=== PATIENT | female | born 1975 | race Asian ===

== ENCOUNTER → 2019-01-16 | Outpatient (CLI) | payer OTHER ==
[~2019-01-16] MED LIST: ACET500T68 PO; CYCL10TA2 PO; IBUP-1060 PO; IOHEXOL 180 MG/ML 10 ML VIAL. ONE; LEVO50TA5 PO; NAPR-514 PO; methylPREDNISolone ACETATE 40 MG/ML VIAL. ONE; methylPREDNISolone ACETATE 80 MG/ML VIAL. ONE
--- NOTE | 2019-01-17 02:43 | PAIN ---
DATE OF SERVICE: 01/16/2019 INITIAL CONSULTATION FOR PAIN CLINIC CHIEF COMPLAINT: Low back and left lower extremity pain. HISTORY OF PRESENT ILLNESS: This is a 43-year-old female who presents with history of pain since a work injury on 10/24/2018. The patient is a nurse sharepoint net developer. She was helping to keep the patient from falling off the bed surface on to the floor and reached over the OR bed and pulled her low back and left leg, had significant pain, getting worse over the next several days following the injury. The patient reports the pain now is across the low back into the left lower extremity, posterior gluteus, posterior thigh, posterior calf with aching and tingling, numbness on the left side, becoming more constant in the back, is intermittent in the legs, but radiating to the left leg as described. No symptoms across the low back on the right side. The patient reports it does not awaken her from sleep at night, is better with sitting or lying down. It does not affect her bowel or bladder control, does affect her ability to walk and stand with significant pain involved with each, even walking more than about 10-15 minutes. The patient has tried Flexeril, ibuprofen, Tylenol and naproxen, none of which are very effective, some help for just a few hours. The patient reports she has had physical therapy, she is doing that currently and doing 3 times a week and is doing that later today actually, also exercising and stretching at home and walking when she can. She is a runner but she has not been able to run since this happened because of the pain. The patient rates her disability rating from 0-10, 10 being the worst, 2 with family and home responsibilities, 4 with recreation, 1 with social activity, 4 with occupation, 3 with sexual behavior, 0 with self-care and 1 with life support activities. The patient did have MRI scan of the lumbar spine showing at L5-S1 mild broad-based central disk protrusion, extrusion extending 0.3 cm posterior with migration of disk material inferiorly by 0.4 cm. This is associated with annular fissure causing slight anterior effacement of the thecal sac. PAST MEDICAL HISTORY: Significant for gastroesophageal reflux and diagnostic laparoscopy, otherwise the patient has been in very good health. CURRENT MEDICATIONS: Include levothyroxine, cyclobenzaprine, naproxen, acetaminophen and ibuprofen. ALLERGIES: The patient has no known drug allergies. FAMILY HISTORY: Significant for no major medical problems or conditions that she is aware of. SOCIAL HISTORY: The patient drinks alcohol occasionally, very rarely socially, does not smoke, does not use any illegal, illicit or recreational drugs. She is , lives with her spouse and her son lives locally in [place], [place]. REVIEW OF SYSTEMS: The patient's review of systems is positive for those items mentioned in history of present illness. All systems reviewed and otherwise negative. It is complete, full and well documented on the patient's chart. PHYSICAL EXAMINATION: VITAL SIGNS: The patient's blood pressure is 125/67, pulse 78, respirations 16, temperature 98.1 degrees Fahrenheit. Height is 5 feet 0 inches, weight is 137 pounds. GENERAL: The patient is awake, alert, oriented, appropriate, very pleasant demeanor. HEENT: Head shows normocephalic, atraumatic. Extraocular movements are intact and symmetrical. Oral cavity: Mucous membranes moist and pink. Dentition is intact. NECK: Shows anterior throat supple without palpable lymphadenopathy noted. Swallow reflex symmetrical. CHEST: Shows normal with inspection. Breath sounds clear to auscultation bilaterally. HEART: Shows S1, S2 clear. No murmurs auscultated. ABDOMEN: Soft, nontender, nondistended. No palpable organomegaly is noted. No rebound or guarding demonstrated. BACK: Shows spine grossly in the midline. Normal-appearing cervical lordotic curvature, thoracic kyphotic curvature and lumbar lordotic curvature. Lumbar paraspinous muscle shows symmetrical on inspection, with palpation shows some moderate tenderness diffusely in the low lumbar distribution, but only diffusely without radiation. The patient has good rotational motion of lumbar spine both laterally as well as extension and flexion without significant difficulty or pain reported. No tenderness over the spinous processes, sacrum or sacroiliac region with direct palpation as well. EXTREMITIES: The patient's lower extremities show deep tendon reflexes 2+ in the patellar, 1+ tendo-calcaneus tendons. Motor exam is strong with 5/5 dorsiflexion, extension, quadriceps and hamstring flexion symmetrical. The patient's lower extremities are warm and dry to touch, equal in color and appearance. Peripheral pulses are 1+ posterior tibia. No peripheral edema is noted. The patient's straight leg raise is noted to be positive on the left at about 45 degrees, decreased with knee flexion, right side is negative. Gaenslen's and Nayan's maneuvers are negative bilaterally as well. The patient is able to stand, stand on her toes without difficulty or loss of balance, walks with a normal-appearing gait, not using any assistive devices to ambulate. SKIN: Shows warm and dry, good turgor. No edema. No sores, rashes or bruising. IMPRESSION: This is a 43-year-old female with: 1. Approximate 3-month history of low back and left lower extremity pain after injury while at work on 10/24/2018. 2. MRI scan of lumbar spine as noted. 3. Gastroesophageal reflux. ASSESSMENT AND PLAN: Options were discussed with the patient including conservative medical management, physical therapy, interventional techniques and she would like to pursue interventional techniques as she is currently doing physical therapy and feels this is helping. We discussed a lumbar epidural steroid injection using description as well as anatomical models to describe the procedure. Risks were discussed including but not limited to bleeding, infection, possibility of epidural hematoma, subsequent neurologic compromise, dural puncture, headaches, spinal cord and/or nerve damage, side effects of steroid medication and poor results regarding pain control. The patient understands and wished to proceed. The patient will return to clinic in approximately 2 weeks for followup, was counseled on return appointment, activity level and side effects to be aware of. DIAGNOSES: Lumbar radiculopathy with lumbar degenerative disk disease with lumbar herniated disk. PROCEDURE: Lumbar epidural steroid injection, translaminar approach at L5-S1 level using C-arm fluoroscopic guidance under sterile prep and drape using local anesthetic. MEDICATION INJECTED: A total of 120 mg Depo-Medrol plus 10 mL of preservative-free normal saline and 2 mL of contrast. CONDITION AT DISCHARGE: Stable. The patient tolerated procedure well, had no complications. SANDRA ABRAHAM MD DR: SILVANA/lori JOB#: [id number] / [id number]
== END ==
LOC: PNCL 10:30
PROVIDERS: ATTEND Anesthesiology
DX: M51.16 Intervertebral disc disorders with radiculopathy, lumbar region (principal); K21.9 Gastro-esophageal reflux disease without esophagitis; Z72.89 Other problems related to lifestyle
CPT/HCPCS: 62323; J1030; J1040; Q9965

== ENCOUNTER → 2019-02-28 | Outpatient (CLI) | payer OTHER ==
[~2019-02-28] MED LIST changes: -IOHEXOL 180 MG/ML 10 ML VIAL. ONE; -methylPREDNISolone ACETATE 40 MG/ML VIAL. ONE; -methylPREDNISolone ACETATE 80 MG/ML VIAL. ONE
--- NOTE | 2019-03-01 02:34 | PAIN ---
DATE OF SERVICE: 02/28/2019 PROGRESS NOTE FOR PAIN CLINIC DIAGNOSES: Lumbar radiculopathy with lumbar degenerative disk disease with lumbar herniated disk. HISTORY OF PRESENT ILLNESS: The patient is a 43-year-old female who returns for followup status post lumbar epidural steroid injection x 2. The patient reports that she had increased pain in her left leg for about a week following the injection, but then it resolved and she had done about 75% better overall. The patient noted increase in her activity, distance walking, greater ability to work, activities, doing household activities as well as sleeping much better at night, does not awaken her from sleep. The patient reports no new motor or sensory deficit. She is quite pleased with her progress. Still some pain in the posterior hip and thigh on the left side in the low back radiating to posterior gluteus, posterior calf to some extent, but the tingling and numbness in her foot has now gone. The patient reports the pain is a 4 on a scale of 10 at its worst over the past week, 3 on average and 2 at its least and is at 2 today. The patient reports no new motor or sensory deficit. She continues to do physical therapy. She is doing exercises at home as well. PHYSICAL EXAMINATION: VITAL SIGNS: The patient's blood pressure is 99/66, pulse 74, respirations 18, temperature 99.0 degrees Fahrenheit, height is 5 feet and weight is 137 pounds. GENERAL: The patient is awake, alert, oriented, appropriate, very pleasant demeanor. HEENT: Shows normocephalic, atraumatic. Extraocular movements are intact and symmetrical. Oral cavity: Mucous membranes moist and pink. Dentition is intact. NECK: Shows anterior throat supple without palpable lymphadenopathy noted. Swallow reflex symmetrical. CHEST: Shows normal on inspection. Breath sounds clear to auscultation bilaterally. HEART: Shows S1, S2 clear. ABDOMEN: Soft, nontender. BACK: Shows spine grossly in the midline. Normal appearing thoracic kyphosis and lumbar lordotic curvature. Lumbar paraspinous muscle shows symmetrical on inspection, with palpation she has some moderate tenderness diffusely bilaterally going diffusely without radiation. EXTREMITIES: The patient's lower extremities show deep tendon reflexes at 2+ in the patellar, 1+ tendo-calcaneus tendons and are equal. Motor exam is strong with 5/5 dorsiflexion and extension. PLAN: Options were discussed with the patient. The patient's old chart was reviewed as her current medication regimen updated. Current review of systems updated today as well. We will hold on any further injections at this time as the patient is quite a bit better, we increased her activity as tolerated, maintain physical therapy exercises and exercises at home, have her return at this time on an as-needed basis. SANDRA ABRAHAM MD DR: SILVANA/lori JOB#: [id number] / [id number]
== END | disposition home or self-care (01) ==
LOC: PNCL 10:52
PROVIDERS: ATTEND Anesthesiology
DX: M51.16 Intervertebral disc disorders with radiculopathy, lumbar region (principal); M51.06 Intervertebral disc disorders with myelopathy, lumbar region
CPT/HCPCS: G0463

== ENCOUNTER → 2019-06-07 | Outpatient (CLI) | payer OTHER ==
[~2019-06-07] MED LIST changes: +IOHEXOL 180 MG/ML 10 ML VIAL. ONE; +methylPREDNISolone ACETATE 40 MG/ML VIAL. ONE; +methylPREDNISolone ACETATE 80 MG/ML VIAL. ONE
--- NOTE | 2019-06-07 15:12 | PAIN ---
DATE OF SERVICE: 06/07/2019 PROGRESS NOTE FOR PAIN CLINIC DIAGNOSES: Lumbar radiculopathy with lumbar degenerative disk disease with lumbar herniated disk. HISTORY OF PRESENT ILLNESS: This is a 43-year-old female who returns for followup status post lumbar epidural steroid injection x 2. The patient reports she did very well, has been increasing her activity with greater ease and comfort with about 75% improvement overall. The patient reports still pain in the low back, left lower extremity, more noticeable after she was doing some running recently, but still fairly well controlled. The patient reports the pain is a 4 on a scale of 10 at its worst, 3 at its average and 2 at its least and is a 2 today. The patient reports it is in the low back, posterior gluteus bilaterally into the left lower extremity, posterior thigh, posterior calf, radiating and tight, but fairly tolerable. 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 PHYSICAL EXAMINATION: VITAL SIGNS: The patient's blood pressure 138/62, pulse 66, respirations 18, temperature 98.4 degrees Fahrenheit, height is 5 feet, weight is 143 pounds. GENERAL: The patient is awake, alert, oriented, appropriate, very pleasant demeanor. HEENT: Head shows normocephalic, atraumatic. Extraocular movements are intact and symmetrical. Oral cavity: Mucous membranes moist and pink. Dentition is intact. NECK: Shows anterior throat supple without palpable lymphadenopathy noted. Swallow reflex symmetrical. CHEST: Shows normal on inspection. Breath sounds are clear bilaterally. HEART: Shows S1, S2 clear. No murmurs auscultated. ABDOMEN: Soft, nontender, nondistended. BACK: Shows spine grossly in the midline. Normal-appearing thoracic kyphosis and lumbar lordotic curvature. Lumbar paraspinous muscle shows symmetrical on inspection, on palpation shows some moderate tenderness diffusely without radiation. EXTREMITIES: Lower extremities show deep tendon reflexes 2+ in the patellar, 1+ tendo-calcaneus tendons. Motor exam is strong with 5/5 dorsiflexion, extension and equal. PLAN: Options were discussed with the patient. The patient's old chart was reviewed as her current medication regimen updated. Current review of systems updated today as well. We will proceed with a third in the series of lumbar epidural steroid injection today with fluoroscopic guidance. Risks were again discussed including, but not limited to bleeding, infection, possibility of epidural hematoma, subsequent neurological compromise, dural puncture, headaches, spinal cord and/or nerve damage, side effects of steroid medication and poor results regarding pain control. The patient understands and wished to proceed. The patient will return to clinic in approximately 2 weeks for followup. She was counseled as to return appointment, activity level and side effects to be aware of. DIAGNOSES: Lumbar radiculopathy with lumbar degenerative disk disease with lumbar herniated disk. PROCEDURE: Lumbar epidural steroid injection, translaminar approach L5-S1 level using C-arm fluoroscopic guidance under sterile prep and drape using local anesthetic. MEDICATION INJECTED: A total of 120 mg Depo-Medrol plus 10 mL of preservative-free normal saline and 2 mL of contrast. CONDITION AT DISCHARGE: Stable. The patient tolerated the procedure well, had no complications. SANDRA ABRAHAM MD DR: SILVANA/lori JOB#: [id number] / [id number]
== END ==
LOC: PNCL 10:58
PROVIDERS: ATTEND Anesthesiology
DX: M51.16 Intervertebral disc disorders with radiculopathy, lumbar region (principal)
CPT/HCPCS: 62323; J1030; J1040; Q9965